=== PATIENT | female | born 1965 | race Asian ===

== ENCOUNTER 2018-12-29 08:00 | Day surgery (SDC) | payer BC ==
[2018-12-29] MEDS ORDERED: ATROPINE 1 MG/10 ML SYRINGE (10:02)
[2018-12-29] MEDS ORDERED: FENTAnyl 50 MCG/ML VIAL (10:03)
[2018-12-29] MEDS ORDERED: MIDAZOLAM 1 MG/ML 2 ML INJ ×2 (10:03)
== END 2018-12-29 12:00 | disposition home or self-care (01) ==
LOC: GIL 08:00
DX: Z12.11 Encounter for screening for malignant neoplasm of colon (principal); Q43.8 Other specified congenital malformations of intestine
CPT/HCPCS: 45378